=== PATIENT | female | born 1975 | race Caucasian/White ===

== ENCOUNTER 2023-05-18 11:19 | Emergency (ER) | payer BC, SELFPAY ==
[2023-05-18 11:34] VITALS: BP 128/76; PULSE 84; RESP 18; TEMP 37.4; O2SAT 98; BMI 22.3
--- NOTE | 2023-05-18 11:58 | CT_ITS ---
Patient: NAZANIN PENNINGTON Facility:?[facility] Patient ID:?[id number] Site Patient ID:?[id number]. Site :?[id number] Study:?CT-Head w/o-05/18/2023 12:24:52 PM Ordering Physician:Thai Gardner Final Report: INDICATION: Fall, hit head TECHNIQUE: Noncontrast axial CT of the head. Coronal and sagittal reformats. Bone and soft tissue algorithms. COMPARISON: No relevant comparison studies available at this institution. FINDINGS: The ventricles and cortical sulci appear age-appropriate. No midline shift or mass effect. No acute intracranial hemorrhage or extra-axial fluid collection. Haynes-white matter differentiation is grossly maintained. White matter attenuation is within normal limits. Intracranial vessels are unremarkable for technique. Midline structures are unremarkable. Bony calvarium appears grossly intact. Presumed chronic dural calcification along the anterior right middle cranial fossa. Hypoplastic right maxillary sinus with laterally deviated nasal wall and uncinate process, narrowing the infundibulum. No paranasal sinus air-fluid level or mastoid effusion. Unremarkable orbits. IMPRESSION: No skull fracture or acute intracranial hemorrhage identified. Please note that all CT scans at this facility use dose modulation, iterative reconstruction, and/or weight-based dosing when appropriate to reduce radiation dose to as low as reasonably achievable. Dictated by Carina Livingston MD @ 05/18/2023 12:35:06 PM Signed by:?Carina Livingston MD @05/18/2023 12:35:06 PM (Electronic Signature)
[2023-05-18 12:15] LABS: Basophils Absolute Auto 0.02 K/uL (0.00-0.30); Basophils Percent Auto 0.3 % (0.0-3.0); Eosinophils Absolute Auto 0.29 K/uL (0.00-0.50); Eosinophils Percent Auto 3.8 % (0.0-7.0); Hematocrit 38.3 % (33.0-51.0); Immature Granulocytes Abs Auto 0.01 K/uL (0.00-0.30); Immature Granulocytes Pct Auto 0.1 %; Lymphocytes Percent Auto 13.4 % (20-44); Mean Corpuscular HGB Conc 31 gm/dL (32-36); Mean Corpuscular Hemoglobin 20 pg (26-34); Mean Corpuscular Volume 64 fL (80-100); Monocytes Percent Auto 5.4 % (0.0-11.0); Platelet Count* 259 K/uL (140-440); RDW Coefficient of Variation % 16.4 % (11.5-15.5); Red Blood Count 5.96 m/uL (4.00-5.20); White Blood Count* 7.56 K/uL (4.50-11.00)
[2023-05-18 12:16] LABS: Slide Review Reflex No
[2023-05-18 12:32] LABS: Chloride* 108 mmol/L (96-114); Potassium* 3.7 mmol/L (3.6-5.1); Sodium* 141 mmol/L (135-149)
[2023-05-18 12:35] LABS: Anion Gap 5 mEq/L (7-15); Blood Urea Nitrogen* 15 mg/dL (5-24); Calcium* 9.5 mg/dL (8.4-10.6); Carbon Dioxide* 28 mmol/L (20-32); Creatinine* 0.6 mg/dL (0.5-1.5); Est. Creatinine Clearance* 106.18; Estimated Glomerular Filt Rate 110 ml/min; Glucose* 100 mg/dL (60-115)
[2023-05-18 12:36] LABS: Magnesium* 2.2 mg/dL (1.5-2.6)
[2023-05-18 12:40] VITALS: PULSE 84; O2SAT 98
[2023-05-18 12:40] LABS: Appearance Urine Clear (Clear); Bilirubin Urine Negative (Negative); Blood Urine 2+ (Negative); Color Urine Yellow (Yellow); Glucose Urine Negative (Negative); Ketones Urine Negative (Negative); Leukocyte Esterase Urine Trace (Negative); Nitrite Urine Negative (Negative); Protein Urine Negative (Negative); Urobilinogen Urine 0.2 (0.2-1.0)
--- NOTE | 2023-05-18 12:43 | ED.GENADULT ---
HPI - General Adult General Date Seen: 05/18/23 Chief complaint: Anxiety Stated complaint: mental health Time Seen by Provider: 05/18/23 11:46 Source: patient and family Mode of arrival: EMS Limitations: no limitations History of Present Illness HPI narrative: Patient is a 47-year-old female presenting to emergency department for what sounds like a panic attack. She was brought in by EMS. She says she was driving on the road and also on she became very anxious and felt numbness down her hands and was feeling extremely overwhelmed. She is feeling like she was no longer able to drive safely. It was at that time to call the ambulance and was brought to the emergency department. She is not here with her sister and too. She states she feels better now. Her sister's are concerned because she is living increased anxiety over the past few months and has had increased stress. She also recently had a partial hysterectomy a month ago in notice some vaginal spotting and bleeding. She was concerned about this and set up an appointment with her surgeon today at 14:00. This was the 1st time she has had the bleeding 1st noticed it earlier this morning. She also had an episode a few days ago was she fainted he was in the middle of the night while she was getting in a glass of milk. She is unsure why she fainted but does states she passed out. She did hit her forehead hurt her right ankle. The ankle has been evaluated but she has not had the forehead evaluated. No other injuries noted. Denies fevers, chills, chest pain, shortness of breath, headache, vision changes, weakness, numbness, dizziness, abdominal pain. Related Data Home Medications Medication Instructions Recorded Confirmed Lexapro 05/18/23 seraquel 05/18/23 Allergies Allergy/AdvReac Type Severity Reaction Status Date / Time No Known Drug Allergies Allergy Verified 05/18/23 11:41 Review of Systems Status of ROS: Reports: 10 or more systems reviewed and unremarkable except as noted in History and below Exam Narrative: Exam Narrative: Const: Well-nourished, Well-developed, in no distress Eyes: PERRL, no conjunctival injection, and symmetrical lids HENT: Atraumatic external nose and ears. Moist mucous membranes. Small bruise above right eyebrow Neck: Symmetric, trachea midline, No thyromegaly. CVS: RRR, No murmurs or gallops. Peripheral pulses 2+ and equal in all extremities RESP: Unlabored respiratory effort. Clear to auscultation bilaterally. GI: Nontender/Nondistended, No rebound or guarding. MSK:Extremities w/o deformity, Normal Active ROM Skin: Warm, Dry. No rashes or lesions. Neuro: Normal Muscle tone, No focal neurological deficits. Psych: Awake, Alert, & Oriented x3. Appropriate mood and affect. Const: Vital Signs, click to edit/add: Vital Signs - 24 hr 05/18/23 11:34 Temperature 99.3 F Pulse Rate [Pulse Oximeter] 84 Respiratory Rate 18 Blood Pressure [Ri t Upper Arm] 128/76 Pulse Oximetry 98 Oxygen Delivery Me thod Room Air Course Vital Signs Vital signs: Initial Vital Signs Temperature 99.3 F 05/18/23 11:34 Temperature Source Temporal Artery Scan 05/18/23 11:34 Pulse Rate 84 05/18/23 11:34 Respiratory Rate 18 05/18/23 11:34 Blood Pressure 128/76 05/18/23 11:34 Blood Pressure Mean 93 05/18/23 11:34 Blood Pressure Position Sitting 05/18/23 11:34 Pulse Oximetry 98 05/18/23 11:34 Oxygen Delivery Method Room Air 05/18/23 11:34 Vital Signs Temperature 99.3 F 05/18/23 11:34 Pulse Rate 84 05/18/23 11:34 Respiratory Rate 18 05/18/23 11:34 Blood Pressure 128/76 05/18/23 11:34 Pulse Oximetry 98 05/18/23 11:34 Oxygen Delivery Method Room Air 05/18/23 11:34 Temperature 99.3 F 05/18/23 11:34 Pulse Rate 84 05/18/23 11:34 Respiratory Rate 18 05/18/23 11:34 Blood Pressure 128/76 05/18/23 11:34 Pulse Oximetry 98 05/18/23 11:34 Oxygen Delivery Method Room Air 05/18/23 11:34 Medical Decision Making MDM Narrative Medical decision making narrative: Patient is a 47-year-old female presenting to the emergency department for multiple complaints. The her symptoms seem to be anxiety related but considering the multiple difference symptoms we will do a full evaluation to make sure there is nothing else going on. Considered she did hit her head relatively hard we will do a CT scan of her head to make sure there is no underlying issues. Also order a BMP, CBC, troponin, magnesium, EKG, urinalysis. With the vaginal spotting I will speak to her surgeon to see if she recommends anything. I was able to get hold of her surgeon, Dr. Seth, and she states this amount of bleeding that the patient is describing is normal for this kind of surgery for up to 8 week. She is not concern is not think we need to do any imaging or a speculum exam and she will do her exam of the patient comes to her appointment today. Patient's CBC shows a normal hemoglobin but does appear to be microcytic. Do not know what her baseline is. BMP shows no concerning findings and troponin EKG showed no concerning findings. CT scan of the head reviewed by myself and the radiologist shows no concerning findings. Lab Data Labs: Lab Results 05/18/23 05/18/23 05/18/23 Range/Units 11:58 12:05 Unknown WBC 7.56 (4.50-11.00) K/uL RBC 5.96 H (4.00-5.20) m/uL Hgb 12.0 (12.0-16.0) gm/dL Hct 38.3 (33.0-51.0) % MCV 64 L (80-100) fL MCH 20 L (26-34) pg MCHC 31 L (32-36) gm/dL RDW Coeff of [place] 16.4 H (11.5-15.5) % Plt Count 259 (140-440) K/uL Neut % (Auto) 77.0 H (42.0-72.0) % Lymph % (Auto) 13.4 L (20-44) % [place] % (Auto) 5.4 (0.0-11.0) % Eos % (Auto) 3.8 (0.0-7.0) % Baso % (Auto) 0.3 (0.0-3.0) % Neut # (Auto) 5.80 (1.7-7.0) K/uL Lymph # (Auto) 1.00 (0.90-2.90) K/uL [place] # (Auto) 0.40 (0.00-0.90) K/UL Eos # (Auto) 0.29 (0.00-0.50) K/uL Baso # (Auto) 0.02 (0.00-0.30) K/uL Abs Immat Gran (auto) 0.01 (0.00-0.30) K/uL Imm/Tot Granulo (auto) 0.1 % Sodium 141 (135-149) mmol/L Potassium 3.7 (3.6-5.1) mmol/L Chloride 108 (96-114) mmol/L Carbon Dioxide 28 (20-32) mmol/L Anion Gap 5 L (7-15) mEq/L BUN 15 (5-24) mg/dL Creatinine 0.6 (0.5-1.5) mg/dL Estimated Creat Clear 106.18 Estimated GFR 110 ml/min Glucose 100 (60-115) mg/dL Calcium 9.5 (8.4-10.6) mg/dL Magnesium 2.2 (1.5-2.6) mg/dL Urine Color Yellow (Yellow) Urine Appearance Clear (Clear) Urine pH 8.0 (5.0-8.5) Ur Specific [place] 1.020 (1.000-1.030) Urine Protein Negative (Negative) Urine Glucose (UA) Negative (Negative) Urine Ketones Negative (Negative) Urine Blood 2+ A (Negative) Urine Nitrite Negative (Negative) Urine Bilirubin Negative (Negative) Urine Urobilinogen 0.2 (0.2-1.0) Ur Leukocyte Esterase Trace A (Negative) Urine RBC 0-2 (0-2) Urine WBC 0-2 (0-5) Ur Squamous Epith Cells Few (None-Few) Urine Bacteria None (None) POC Troponin I 0.00 L (0.01-0.04) ng/ml Imaging Data CT scan - head: Attestation: I have reviewed the pertinent imaging results. Radiologist's impression: No skull fracture or acute intracranial hemorrhage identified. Please note that all CT scans at this facility use dose modulation, iterative reconstruction, and/or weight-based dosing when appropriate to reduce radiation dose to as low as reasonably achievable. Dictated by Carina Livingston MD @ 05/18/2023 12:35:06 PM ECG Data Attestation: I personally reviewed and interpreted this ECG as follows: Prior ECG tracings: not available for review Interpretation: Normal sinus rhythm with a rate of 87 beats per minute, normal intervals, normal axis, no ST or T-wave abnormalities Discharge Plan Discharge Clinical Impression: Acute anxiety Patient Disposition: Home, Self-Care Condition: Improved Instructions: Panic Disorder (ED) Additional Instructions: Make sure to go to your appointment with Dr. Seth today. Return to emergency department for new or worsening symptoms. Prescriptions: No Action Lexapro seraquel Follow Up/Referrals: Rafia Wade MD [Primary Care Provider] - Stand Alone Forms: [employer] Info Instructions
[2023-05-18 12:45] VITALS: PULSE 83; O2SAT 97
[2023-05-18 12:51] LABS: RBC Urine 0-2 (0-2); WBC Urine 0-2 (0-5)
[2023-05-18 12:52] LABS: Squamous Epithelial Cell Urine Few (None-Few)
[2023-05-18 13:00] VITALS: PULSE 84; O2SAT 95
== END 2023-05-18 13:12 | disposition home or self-care (01) ==
PROVIDERS: Emergency Provider Student in an Organized Health Care Education/Training Program; PCP Family Medicine
DX: F41.9 Anxiety disorder, unspecified (principal)
CPT/HCPCS: 36415; 70450; 80048; 81001; 83735; 84484; 85025; 87086; 93005; 99283; 99284; 99285